=== PATIENT | female | born 1960 | race Caucasian/White ===

== ENCOUNTER 2016-06-15 19:42 | Emergency (ER) | payer OTHER ==
[2016-06-15 20:00] VITALS: BMI 28.7
[2016-06-15 20:03] VITALS: TEMP 97.7
[2016-06-15] MEDS ORDERED: HYDROmorphone 1 MG INJECTION IV ONE ×2 (20:04→20:41)
[2016-06-15] MEDS ORDERED: NS 1,000 ML IV ONE (20:04)
[2016-06-15] MEDS ORDERED: ONDANSETRON HCL 4 MG/2 ML VIAL IV ONE (20:04)
[2016-06-15 20:50] LABS: AUTOMATED BASOPHIL 1.5 % (0-2); AUTOMATED MONOCYTE 5.7 % (3-10); AUTOMATED NEUTROPHIL 64.8 % (45-76); MPV 7.5 fL (7.4-10.4)
--- NOTE | 2016-06-15 21:02 | EDPRACDOC ---
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 PT C/O LEFT ELBOW AND WRIST PAIN. STATES SHE SLIPPED AND STRUCK THE FLOOR WITH HER LEFT SIDE. PT PRESENTS WITH ELBOW EDEMA, BRISK CAP REFILL, 2+ RADIAL PULSE Pain Severity: Reports: Moderate Injuries/Pain Location: Reports: upper extremity Reason for Fall: Reports: slipped Loss of Consciousness: no loss of consciousness Modifying Factors: improves with: immobilization Associated Symptoms (Fall): Reports: denies symptoms Allergies/Adverse Reactions: Allergies No Known Allergies Allergy (Verified 06/15/16 22:13) Home Medications: Ambulatory Orders Albuterol Sulfate MDI [Proventil HFA] 1 - 2 puff INH Q4-6H PRN 04/27/16 Azithromycin 250 mg PO DAILY #6 tablet 04/27/16 Hydrochlorothiazide 12.5 mg PO DAILY 04/27/16 Hydrocodone Bit/Acetaminophen [[place] 5-325 Tablet] 1 tab PO Q4-6H PRN 04/27/16 Lorazepam [Ativan] 0.5 mg PO QHS PRN 04/27/16 Ondansetron HCl [Zofran] 4 mg PO Q6H PRN 04/27/16 Ondansetron [Zofran Odt] 4 mg PO TID PRN #10 tab.rapdis 06/15/16 Oxycodone Immediate Release [Oxycodone Immediate Release (OxyIR)] 5 mg PO Q6H PRN #30 tab 06/15/16 ED Past Medical History - History Reviewed Yes Nurses notes reviewed and agree except as marked - Patient Medical History Cardiac History: Reports: Hypertension Respiratory History: Reports: Asthma, COPD, Emphysema Psychological History: Denies: Depression - Social Medical History Smoking Status: Heavy tobacco smoker (5 or more cigarettes/day or daily pipe/ cigar) EDM Review of Systems - Review of Systems ROS Negative Except as Marked: Yes All systems reviewed and were negative except as marked - Physical Exam Constitutional: Alert (PT APPEARS TO BE UNCOMFORTABLE) Oriented to: Time, Person, Place Last recorded Vital Signs: Last Vital Signs Temp 97.7 F 06/15/16 20:00 Pulse 84 06/15/16 20:00 Resp 20 06/15/16 20:00 BP 145/116 H 06/15/16 20:00 Pulse Ox 96 06/15/16 20:00 Oxygen Pulse Oxygen Saturation 96 O2 Device Room Air Oxygen Flow Rate Fraction of Inspired Oxygen ( FIO2) - HEENT Head: Normal ( normocephalic) Eye Exam: Normal (PERRL, EOMI, Sclera white) Oropharynx: Normal (Pharynx:Moist without exudate,Gums-no swelling) Nose: No Symptoms Reported (septum midline) Neck: Normal (FROM, trachea at midline) - Respiratory/Cardiovascular Respiratory: Normal - CTA (BBS clear to auscultation without adventitious sounds ) Cardiovascular: Normal (RRR without murmur, gallop or rub) - GI Auscultation: Normal (NABS) Palpation: Normal (Soft,No rebound or guarding, non distended) Tenderness: Non tender Mahajan's Sign: Negative Rectal Exam: Deferred - Musculoskeletal Back: Normal (Non-Tender) Extremities: Edema (RIGHT ELBOW), Radial Pulse (2+) - Integumentary Skin: Normal, Warm, Dry Lymphatics: Normal (no adenopathy) - Neurologic Memory Impaired: Normal Motor Function: Normal (Normal tone, Pulses 2+ No cyanosis or edema, FROM) Cranial Nerve: Normal (CN II-X11 intact sensation, strength 5/5) Cerebellar: Normal Mood Description: Normal Perception: Normal ED Injury/Fall Exam - Physical Exam Head Injury: no evidence of injury Extremity Exam: bony-point tenderness, pain with movement, tenderness Skin: Normal, Warm, Dry - Uyen Coma Score Best Eye Response (Uyen): (4) open spontaneously Best Verbal Response (Joppa): (5) oriented Best Motor Response (Uyen): (6) obeys commands [place] Total: 15 ED Procedures - Splinting LEFT ARM Location: LEFT ARM Hand-Made Type: orthoglass Splint: LONG ARM Pre-Proc Neuro Vasc Exam: normal Post-Proc Neuro Vasc Exam: normal, unchanged from pre-exam Other Devices: Sling - Differential Diagnosis Fall, Fracture - Results 06/15/16 20:35 06/15/16 20:35 WBC 10.0 xk/uL (3.8-10.8) 06/15/16 20:35 RBC 4.00 xM/uL (4.20-5.40) L 06/15/16 20:35 Hgb 13.5 g/dL (12.0-16.0) 06/15/16 20:35 Hct 39.4 % (36-47) 06/15/16 20:35 MCV 99 fL (81-99) 06/15/16 20:35 MCH 33.7 pg (27-32) H 06/15/16 20:35 MCHC 34.2 g/dl (33-36) 06/15/16 20:35 RDW 12.7 % (11.5-14.5) 06/15/16 20:35 Plt Count 252 xk/uL (130-400) 06/15/16 20:35 MPV 7.5 fL (7.4-10.4) 06/15/16 20:35 Neut % (Auto) 64.8 % (45-76) 06/15/16 20:35 Lymph % (Auto) 25.0 % (17-44) 06/15/16 20:35 Garden % (Auto) 5.7 % (3-10) 06/15/16 20:35 Eos % (Auto) 3.0 % (0-5) 06/15/16 20:35 Baso % (Auto) 1.5 % (0-2) 06/15/16 20:35 Absolute Neuts (auto) 6.40 xk/uL (1.7-8.2) 06/15/16 20:35 Absolute Lymphs (auto) 2.50 xk/uL (0.65-4.75) 06/15/16 20:35 Lab Results 06/15/16 20:35 WBC 10.0 RBC 4.00 L Hgb 13.5 Hct 39.4 MCV 99 MCH 33.7 H MCHC 34.2 RDW 12.7 Plt Count 252 MPV 7.5 Neut % (Auto) 64.8 Lymph % (Auto) 25.0 Garden % (Auto) 5.7 Eos % (Auto) 3.0 Baso % (Auto) 1.5 Absolute Neuts (auto) 6.40 Absolute Lymphs (auto) 2.50 Decision Time to Discharge: 00:13 - Departure Disposition: Home Condition: Stable Final Diagnosis: Accidental fall Elbow fracture, left Qualifiers: Encounter type: initial encounter Fracture type: closed Qualified Code(s): S42.402A - Unspecified fracture of lower end of left humerus, initial encounter for closed fracture Humeral distal fracture Qualifiers: Encounter type: initial encounter Fracture type: closed Fracture morphology: unspecified fracture morphology Laterality: left Qualified Code(s): S42.402A - Unspecified fracture of lower end of left humerus, initial encounter for closed fracture Instructions: RICE: Routine Care for Injuries, Elbow Fracture in Adults (ED), Arm Fracture in Adults (ED) Education/Counseling Given To: Patient Education/Counseling Given Regarding: Diagnosis, Treatment, Prognosis, Follow Up Referrals: Haseeb Magana MD [Staff Physician] - One Week Prescriptions: Ondansetron [Zofran Odt] 4 mg PO TID PRN #10 tab.rapdis PRN Reason: Nausea/Vomiting Oxycodone Immediate Release [Oxycodone Immediate Release (OxyIR)] 5 mg PO Q6H PRN #30 tab PRN Reason: Pain Forms: Excuse Note Additional Instructions: ICE AND ELEVATION IS VERY IMPORTANT. PLEASE GO TO DR MAGANA'S OFFICE AT 0800 TOMORROW. 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
[2016-06-15 21:18] LABS: BLOOD UREA NITROGEN < 2 MG/DL (7-17); GLUCOSE 118 MG/DL (70-99)
[2016-06-15 21:32] LABS: CALCULATED OSMOLALITY 267 MOs/Kg (270-290); CHLORIDE 104 mEq/L (98-107); SODIUM LEVEL 140 mEq/L (137-146); TOTAL PROTEIN < 2.0 G/DL (6.3-8.2)
[2016-06-15] MEDS ORDERED: PROMETHAZINE 25 MG/ML VIAL IV ONE (21:57)
--- NOTE | 2016-06-15 21:58 | DIRPT ---
CLINICAL DATA: Status post fall in kitchen, with left wrist pain. Initial encounter. EXAM: LEFT WRIST - COMPLETE 3+ VIEW COMPARISON: None. FINDINGS: There is no evidence of fracture or dislocation. The carpal rows are intact, and demonstrate normal alignment. The joint spaces are preserved. Mild dorsal soft tissue swelling is noted. IMPRESSION: No evidence of fracture or dislocation. Electronically Signed By: Chaim Pedroza M.D. On: 06/15/2016 21:56
[2016-06-15] MEDS ORDERED: Pharmacy Review for Metformin - IV Contrast Given SCH (22:00)
--- NOTE | 2016-06-15 22:00 | DIRPT ---
CLINICAL DATA: Diffuse left arm pain after fall in kitchen at work tonight. Pain in the shoulder, elbow, and wrist. EXAM: LEFT FOREARM - 2 VIEW COMPARISON: None. FINDINGS: Comminuted olecranon fracture with osseous distraction of 12 mm and angulation. More posterior fragment is displaced posteriorly. There is adjacent soft tissue edema at the fracture site. More distal ulna and radius are intact. IMPRESSION: Comminuted displaced olecranon fracture. Electronically Signed By: Monika Brower M.D. On: 06/15/2016 21:58
--- NOTE | 2016-06-15 22:01 | DIRPT ---
CLINICAL DATA: PT PRESENTS DUE TO LEFT ARM PAIN THAT OCCURRED AFTER SHE FELL IN KITCHEN AT WORK TONIGHT. PT C/O LEFT SHOULDER, ELBOW, AND WRIST PAIN. STATES SHE SLIPPED AND STRUCK THE FLOOR WITH HER LEFT SIDE EXAM: LEFT ELBOW - COMPLETE 3+ VIEW COMPARISON: None. FINDINGS: There is a fracture of the proximal LEFT ulna through the olecranon fossa. There is comminution the proximal ulna with rotation of the most proximal aspect of the olecranon. No evidence of dislocation. IMPRESSION: Comminuted fracture of the olecranon. Electronically Signed By: Haris Conrad M.D. On: 06/15/2016 21:58
--- NOTE | 2016-06-15 22:03 | DIRPT ---
CLINICAL DATA: Diffuse left arm pain after fall in kitchen at work tonight. Pain in the shoulder, elbow, and wrist. EXAM: LEFT HUMERUS - 2+ VIEW COMPARISON: None. FINDINGS: Comminuted olecranon fracture, better assessed on concurrently performed elbow radiographs. There is an impaction fracture involving the surgical neck of the humerus with displacement, mild comminution and angulation. Glenohumeral alignment is suboptimally assessed. IMPRESSION: 1. Mildly comminuted displaced fracture involving the surgical neck of the humerus. 2. Comminuted olecranon fracture, better assessed on concurrent elbow radiographs. Electronically Signed By: Monika Brower M.D. On: 06/15/2016 22:00
--- NOTE | 2016-06-15 23:37 | DIRPT ---
CLINICAL DATA: Left elbow pain after fall. Further characterization of left elbow fracture. EXAM: CT OF THE UPPER LEFT EXTREMITY WITHOUT CONTRAST TECHNIQUE: Multidetector CT imaging of the left elbow was performed according to the standard protocol. COMPARISON: Radiographs earlier this day. FINDINGS: Comminuted olecranon fracture with displacement of a posterior fragment, distraction of 11 mm. There is comminuted articular surface involvement. The distal humerus remains articulated with the dominant proximal fragment. No additional fracture of the proximal radius or distal humerus. Diffuse soft tissue thickening about the fracture site. There is a small joint effusion. IMPRESSION: Comminuted olecranon fracture with mild angulation and displacement of the proximal most portion of 11 mm. Multifocal comminuted articular surface involvement. Distal humerus remains articulated with the dominant proximal olecranon. Electronically Signed By: Monika Broewr M.D. On: 06/15/2016 23:34
[2016-06-16] MEDS ORDERED: HYDROmorphone 1 MG INJECTION IV ONE
[2016-06-16] MEDS ORDERED: HYDROCODONE 10 MG/ACETAMIN 325 MG TAB PO ONE (00:14)
[2016-06-16] MEDS ORDERED: PROMETHAZINE 25 MG TAB PO ONE (00:18)
[2016-06-16 00:37] VITALS: BP 151/75; PULSE 82
== END 2016-06-16 00:20 | disposition home or self-care (01) ==
LOC: ED 19:42
DX: S52.022A Displaced fracture of olecranon process without intraarticular extension of left ulna, initial encounter for closed fracture (principal); S42.212A Unspecified displaced fracture of surgical neck of left humerus, initial encounter for closed fracture; W01.0XXA Fall on same level from slipping, tripping and stumbling without subsequent striking against object, initial encounter; Y99.0 Civilian activity done for income or pay; I10 Essential (primary) hypertension; J44.9 Chronic obstructive pulmonary disease, unspecified; J45.909 Unspecified asthma, uncomplicated; F17.200 Nicotine dependence, unspecified, uncomplicated; Z79.899 Other long term (current) drug therapy
CPT/HCPCS: 29105; 36415; 73060; 73080; 73090; 73110; 73200; 80053; 85025; 94660; 96361; 96374; 96375; 96376; 99284; J1170; J2405; J2550; J3490

== ENCOUNTER 2016-06-21 20:42 | Emergency (ER) | payer OTHER ==
[2016-06-21 21:19] VITALS: TEMP 97.3; BMI 29.8
--- NOTE | 2016-06-21 21:24 | EDPRACDOC ---
- General Information Chief Complaint: Upper Extremity Injury Stated Complaint: HAND SWELLING Time Seen by Provider: 06/21/16 21:12 Information Source: Patient Mode Of Arrival: Car Home Medications: Home Medications Albuterol Sulfate MDI [Proventil HFA] 1 - 2 puff INH Q4-6H PRN 04/27/16 Hydrochlorothiazide 12.5 mg PO DAILY 04/27/16 Oxycodone Immediate Release [Oxycodone Immediate Release (OxyIR)] 5 mg PO Q6H PRN #30 tab 06/15/16 Aspirin/Acetaminophen/Caffeine [Excedrin Ex-Strength Geltab 250/250/65mg] 1 - 2 tab PO Q4-6H PRN 06/18/16 Diphenhydramine [Benadryl] 25 mg PO Q6H PRN 06/18/16 Oxycodone HCl/Acetaminophen [Percocet 10-325 mg Tablet] 1 each PO Q4 #30 tablet 06/21/16 Allergies/Adverse Reactions: Allergies Allergy/AdvReac Type Severity Reaction Status Date / Time No Known Allergies Allergy Verified 06/15/16 22:13 - History of Present Illness Onset: 4 days HPI: PATIENT HAD A FALL DAYS AGO. FRACTURE OF THE LEFT HUMERAL NE CK AND LEFT ELBOW. BECAUSE OF PAIN PATIENT IS UNABLE TO ELEVATE ARM. SEEING DR. MAGANA TOMORROW. SURGERY IN NEAR FUTURE. SHE PRESENTS BECAUSE HER HAND HAS HAD INCREASED SWELLING AND PAIN HAS INCREASED. SHE DENIES REINJURY. Dominant Side: Reports: Right Mechanism: Reports: FOOSH Circumstances: Reports: Fall Tetanus Up To Date?: Yes Pain Severity: Reports: Moderate Ability to Move Elbow: No Associated Signs and Symptoms: Reports: Swelling ED Past Medical History - History Reviewed Yes Nurses notes reviewed and agree except as marked Travel Outside of [place] in the Last 3 Months?: No - Patient Medical History Cardiac History: Reports: Hypertension Respiratory History: Reports: Asthma, COPD, Emphysema Psychological History: Denies: Depression - Social Medical History Smoking Status: Heavy tobacco smoker (5 or more cigarettes/day or daily pipe/ cigar) ETOH: None Substance Abuse: None Lives With: Family Lives In: Home EDM Review of Systems - Review of Systems ROS Negative Except as Marked: Yes All systems reviewed and were negative except as marked Constitutional: No Symptoms Reported. negative: Fever, Chills, Weakness, Fatigue, Loss of Appetite Eyes: No Symptoms Reported. negative: Redness, Blurred Vision, Double Vision, Discharge, Pain, Light Sensitive, Photophobia Ears: No Symptoms Reported. negative: Pain, Hearing Loss, Drainage, Ear Pulling Throat: No Symptoms Reported. negative: Pain, Swelling Nose: No Symptoms Reported. negative: Congestion, Bleeding, Discharge, Injection, Swelling, Deformity, Ecchymosis, Tender, Abrasion, Laceration Mouth: No Symptoms Reported. negative: Pain, Drooling Respiratory: No Symptoms Reported. negative: Cough, Brassy Cough, Barky Cough, Shortness of Breath, Wheezing, Hemoptysis Cardiovascular: No Symptoms Reported. negative: Chest Pain, Palpitations, Syncope, Edema, Orthopnea, PND, Skin Mottling, Cyanosis Gastrointestinal: No Symptoms Reported. negative: Pain, Constipation, Nausea, Vomiting, Diarrhea, Melena, Formula Intolerance Genitourinary: No Symptoms Reported. negative: Dysuria, Hematuria, Frequency, Discharge, Bleeding, Testicular Pain, Neurological: No Symptoms Reported. negative: Headache, Dizziness, Seizure, Numbness, Weakness, Speech Difficulty, Gait Difficulty Musculoskeletal: Arm (PAIN AND SWELLING), Elbow (PAIN AND SWELLING). negative: Ankle, Back, Chestwall, Forearm, Femur, Foot, Hand, Hip, Knee, Leg, Neck, Pelvis , Ribs, Shoulder, Wrist Integumentary: No Symptoms Reported. negative: Itching, Rash, Bruising, Wound Allergic/Immunologic: No Symptoms Reported. negative: Hives, Itching Hematologic: No Symptoms Reported. negative: Lymphadenopathy, Easy Bruising, Easy Bleeding Endocrine: No Symptoms Reported. negative: Weight Gain, Weight Loss Psychiatric: No Symptoms Reported. negative: Anxiety, Depression, Hallucinations, Insomnia, Suicidal - Physical Exam Constitutional: Alert (Awake), Distress (MILD) Oriented to: Time, Person, Place Last recorded Vital Signs: Last Vital Signs Temp 97.3 F L 06/21/16 21:12 Pulse 83 06/21/16 21:12 Resp 20 06/21/16 21:12 BP 182/88 H 06/21/16 21:12 Pulse Ox 96 06/21/16 21:12 Oxygen Pulse Oxygen Saturation 96 O2 Device Room Air Oxygen Flow Rate Fraction of Inspired Oxygen ( FIO2) - HEENT Head: Normal ( normocephalic) Eye Exam: Normal (PERRL, EOMI, Sclera white) Oropharynx: Normal (Pharynx:Moist without exudate,Gums-no swelling) Tympanic Membrane: Normal ENT EAC: Normal TMJ: Normal Nose: No Symptoms Reported (septum midline) Neck: Normal (FROM, trachea at midline) - Respiratory/Cardiovascular Respiratory: Normal - CTA (BBS clear to auscultation without adventitious sounds ) Cardiovascular: Normal (RRR without murmur, gallop or rub) - GI Auscultation: Normal (NABS) Palpation: Normal (Soft,No rebound or guarding, non distended) Tenderness: Non tender Mahajan's Sign: Negative - Musculoskeletal Back: Normal (Non-Tender) Extremities: Normal (Normal tone, Pulses 2+ No cyanosis or edema, FROM) - Integumentary Skin: Warm, Dry, Other (BRUISING AND SWELLING AT THE PROXIMAL HUMERUS. SWELLING AT THE LEFT ELBOW WITH INABILITY TO ROM. POSTERIOR MOLD IN PLACE. WAI BANDAGES NOT TOO TIGHT. EDEMA OF LEFT HAND DUE TO LACK OF ELEVATION) Lymphatics: Normal (no adenopathy) - Neurologic Memory Impaired: Normal Motor Function: Normal (Normal tone, Pulses 2+ No cyanosis or edema, FROM) Cranial Nerve: Normal (CN II-X11 intact sensation, strength 5/5) Cerebellar: Normal Mood Description: Normal Perception: Normal Decision Time to Discharge: 21:26 - Departure Yes I personally saw and evaluated the patient. Disposition: Home Condition: Good Final Diagnosis: Peripheral edema Left humeral fracture Qualifiers: Encounter type: subsequent encounter Humerus Location: surgical neck Fracture type: closed Fracture morphology: 4-part Fracture healing: with routine healing Qualified Code(s): S42.242D - 4-part fracture of surgical neck of left humerus, subsequent encounter for fracture with routine healing Left elbow fracture Qualifiers: Encounter type: subsequent encounter Fracture healing: with routine healing Qualified Code(s): S42.402D - Unspecified fracture of lower end of left humerus , subsequent encounter for fracture with routine healing Instructions: RICE: Routine Care for Injuries Education/Counseling Given To: Patient Education/Counseling Given Regarding: Diagnosis, Treatment, Prognosis, Follow Up Referrals: None,No Provider [Primary Care Provider] - One Week Haseeb Magana MD [Staff Physician] - One Week Prescriptions: Oxycodone HCl/Acetaminophen [Percocet 10-325 mg Tablet] 1 each PO Q4 #30 tablet Additional Instructions: KEEP ARM ELEVATED ABOVE HEART
[2016-06-21 21:39] VITALS: BP 179/91; PULSE 81
== END 2016-06-21 21:38 | disposition home or self-care (01) ==
LOC: ED 20:42
DX: S42.242D 4-part fracture of surgical neck of left humerus, subsequent encounter for fracture with routine healing (principal); X58.XXXD Exposure to other specified factors, subsequent encounter; R60.0 Localized edema
CPT/HCPCS: 99283

== ENCOUNTER 2016-06-23 10:39 | Observation (INO) | payer OTHER ==
[~2016-06-23 10:39] MED LIST: DEXAMETHASONE 4 MG/ML VIAL IV ONE; EPHEDrine 50 MG/ML VIAL IM ONE; FENTANYL 100 MCG/2 ML VIAL IV ONE; GLYCOPYRROLATE 1 MG VIAL IM ONE; HYDROmorphone 2 MG/ML VIAL IM ONE; LABETALOL 5 MG/ML MDV IV ONE; LIDOCAINE 4% 5 ML AMPULE NEB ONE; MIDAZOLAM 2 MG/2 ML VIAL IV ONE; NEOSTIGMINE 1 MG/1 ML (1:1000) INJ 10 ML MDV IM ONE; ONDANSETRON HCL 4 MG/2 ML VIAL IV ONE; PROPOFOL 200 MG/20 ML VIAL IV ONE; ROCURONIUM 50 MG/5 ML VIAL IV ONE; SUCCINYLCHOLINE 20 MG/1 ML INJ 10 ML MDV IV ONE
[2016-06-23] MEDS ORDERED: CEFAZOLIN 1 GM VIAL ONE (10:52)
[2016-06-23] MEDS ORDERED: ONDANSETRON HCL 4 MG/2 ML VIAL IV PRN ×2 (11:57→18:07)
[2016-06-23] MEDS ORDERED: LABETALOL 20 MG/4 ML SYRINGE IV PRN (11:57)
[2016-06-23] MEDS ORDERED: ONDANSETRON HCL 4 MG ODT TAB PO PRN (11:57)
[2016-06-23] MEDS ORDERED: MEPERIDINE 25 MG/ML TUBEX IV PRN (11:57)
[2016-06-23] MEDS ORDERED: hydrALAZINE 20 MG/ML VIAL IV PRN (11:57)
[2016-06-23] MEDS ORDERED: FENTANYL 100 MCG/2 ML VIAL IV PRN ×2 (11:57)
[2016-06-23] MEDS ORDERED: HYDROmorphone 1 MG INJECTION IV PRN ×2 (11:57)
[2016-06-23] MEDS ORDERED: SCOPOLAMINE TRANSDERMAL PATCH TOP PRN (11:58)
[2016-06-23] MEDS ORDERED: ONDANSETRON HCL 4 MG/2 ML VIAL IV SCH ×2 (12:00→13:00)
[2016-06-23] MEDS ORDERED: ONDANSETRON HCL 4 MG/2 ML VIAL ONE (12:01)
[2016-06-23] MEDS ORDERED: SCOPOLAMINE TRANSDERMAL PATCH TOP ONE (12:01)
[2016-06-23] MEDS ORDERED: LIDOCAINE 1% 30 ML VIAL (PRESERVATIVE FREE) ONE (12:26)
[2016-06-23] MEDS ORDERED: BUPIVACAINE 0.5% 30 ML VIAL ONE (12:26)
--- NOTE | 2016-06-23 14:04 | HIM.ANES ---
Anesthesia Evaluation & Plan Diagnoses: UNSP DISP FX OF SURGICAL NECK OF LEFT HUMERUS, INIT (06/23/16) DISP FX OF OLECRAN PRO W/O INTARTIC EXTN LEFT ULNA, INIT (06/23/16) Consented Procedure: open reduction internal fixation left humerus fracture and open reduction internal fixation left olecranon fracture and other procedures as indicated - Focused Review of Systems Cardiac History: Yes: Hx Hypertension, Hx Cardiac Disorders HEENT: No: Other HEENT Problems Hx Other HEENT Problems: SEASONAL ALLERGIES, RHINNITIS Respiratory: Yes: Hx Asthma, Hx Emphysema, Hx Chronic Obstructive Pulmonary Disease (COPD) Gastrointestinal: No: Hx Gastrointestinal Disorders Neurological/Musculoskeletal: No: Hx Neurological Disorders Psychological: Yes Hx Anxiety, No Hx Depression, Yes Hx Mental/Emotional Disorders HX Other Psyco/Soc Problems: anxiety Blood/Autoimmune: No: Hx AIDS, Hx Hepatitis (type) Smoking Status: Heavy tobacco smoker (5 or more cigarettes/day or daily pipe/ cigar) Other Surgical History: TUBAL LIGATION, DELIVERY BTL - Focused Physical Exam NPO since: 06/23/16 0230 Mallampati: Class II Thyromental Distance: Greater than 3 Neck: Full Range of Motion Dental: Normal - no significant findings Cardiovascular/Chest: Normal Respiratory: Lungs clear Any problems with anesthesia, including nausea and vomiting?: No Any relatives with a history of Malignant Hyperthermia?: No Does patient have a history of Malignant Hyperthermia?: No Beta Caridad given (if appropriate): N/A Does the patient have a history of Motion Sickness-: No Other: Problem List Problem Status Onset Accidental fall Acute Elbow fracture, left Acute Humeral distal fracture Acute Left carpal tunnel syndrome Acute Left elbow fracture Acute Left humeral fracture Acute Peripheral edema Acute Right carpal tunnel syndrome Chronic Trigger finger Chronic Trigger finger of left hand Chronic Allergies Allergy/AdvReac Type Severity Reaction Status Date / Time No Known Allergies Allergy Verified 06/23/16 11:07 Home Medications Medication Instructions Recorded Last Taken Type Albuterol Sulfate MDI [Proventil 1 - 2 puff INH Q4-6H PRN 04/27/16 06/22/16 History HFA] Hydrochlorothiazide 12.5 mg PO DAILY 04/27/16 06/22/16 History Oxycodone Immediate Release 5 mg PO Q6H PRN #30 tab 06/15/16 06/22/16 Rx [Oxycodone Immediate Release (OxyIR)] Aspirin/Acetaminophen/Caffeine 1 - 2 tab PO Q4-6H PRN 06/18/16 06/22/16 History [Excedrin Ex-Strength Geltab 250/250/65mg] Diphenhydramine [Benadryl] 25 mg PO Q6H PRN 06/18/16 06/22/16 History Oxycodone HCl/Acetaminophen 1 each PO Q4 #30 tablet 06/21/16 06/23/16 00:00 Rx [Percocet 10-325 mg Tablet] Ondansetron HCl [Zofran] 4 mg PO Q8H PRN 06/23/16 06/22/16 History Height and Weight Patient's height 5 ft 1 in Patient's weight 71.668 kg BMI 29.8 Vital Signs Temperature 97.8 F 06/23/16 10:50 Pulse Rate 90 06/23/16 10:50 Respiratory Rate 16 06/23/16 10:50 Blood Pressure 150/89 06/23/16 10:50 Pulse Oxygen Saturation 96 06/23/16 10:50 METS - Level of Activity: Climbing stairs(1 flight),walking level ground, running short distance - Anesthetic Plan Anesthesia Type: General, Post-Op Block- for Pain Control ASA Class: 2 -: I have examined this patient and reviewed the medical record. The patient has been assessed prior to anesthesia. Risks and benefits of anesthesia and anesthetic technique options have been discussed and all questions answered. The patient accepts the risk and desires me to proceed with the planned anesthetic.
[2016-06-23] MEDS: VANCOMYCIN 1,000 MG VIAL INSTILL ONE ×2 (15:03→20:11)
[2016-06-23] MEDS: FENTANYL 100 MCG/2 ML VIAL ONE ×2 (16:00→16:10)
[2016-06-23] MEDS ORDERED: HYDROmorphone 1 MG INJECTION ONE (16:17)
[2016-06-23] MEDS ORDERED: MIDAZOLAM 2 MG/2 ML VIAL ONE (16:40)
[2016-06-23] MEDS ORDERED: BUPIVACAINE 0.25% 30 ML VIAL ONE (16:48)
[2016-06-23] MEDS ORDERED: LIDOCAINE 1% 5 ML (METHYLPARABEN FREE) ONE (16:48)
--- NOTE | 2016-06-23 17:40 | HIM.ANESP ---
Procedure Note DATE OF PROCEDURE: 06/23/16 PREOPERATIVE DIAGNOSIS: Post-operative Pain Control. POSTOPERATIVE DIAGNOSIS: Same PROCEDURE: Brachial Plexus Block at interscalene PERFORMING PROVIDER: Aurea Cannon MD TIME OUT: 165 BLOCK START Time: 1700 BLOCK STOP Time: 1715 MEDICATIONS: Bupivacaine 0.25% 30 ml EPINEPHRINE 1:200,000 NEEDLE: sunne.ws ultra 360 22G 50MM STERILE BARRIERS: Cap, mask, sterile gloves. COMPLICATIONS: None. BLOOD LOSS: 0 cubic centimeters. PROCEDURE FINDINGS AND TECHNIQUE:At the request of the Operative Surgeon and patient, a Brachial Plexus Block was performed for post-operative pain relief. Risk, benefits and alternatives of the procedure were explained. Informed consent was obtained and surgical site confirmed with patient and chart. Time out was performed. Pulse oximetry, EKG and BP monitoring were established.. The left neck was prepped and draped in a sterile manner. Skin anesthesia was obtained with 1% Xylocaine infiltration. The Brachial plexus was visualized by ultrasound and an image is appended. (see chart) A Stimuplex needle was inserted in the proximity of the nerves. Under direct visualization local anesthetic was injected in incremental volumes of 5 ml with negative aspirations throughout. There was no pain on injection. A peripheral nerve stimulator was used to assist in localizing the brachial plexus. Appropriate paresthesia and/or muscle response was noted at 0.5mA current. No muscle response noted at 2mA or less. Block was placed in the PACU after surgery
--- NOTE | 2016-06-23 17:55 | SC.ANESPOS ---
Post-Anesthesia Note LOC: Fully Awake (post op pain block done in PACU post op. Pt tolerated procedure well, pain better post blockc) Post-Anesthesia Assessment: Awake, Returned to Baseline, Hemodynamically Stable , Pain Control Adequate Phase I & II Recovery Complete: Yes Apparent Anesthesia Complication: No : N - Vital Signs Blood Pressure: 133/85 Pulse: 108 Resp Rate: 22 O2 Sat: 93 Temp: 97.2 F
[2016-06-23] MEDS ORDERED: OXYCODONE HCL 5 MG TABLET PO PRN (18:07)
[2016-06-23] MEDS ORDERED: PROMETHAZINE 25 MG/ML VIAL IV PRN (18:07)
[2016-06-23] MEDS ORDERED: Aluminum;Magnesium;Simethicone 30 ML UDC PO PRN (18:07)
[2016-06-23] MEDS ORDERED: ACETAMINOPHEN 325 MG/TAB TABLET PO PRN (18:07)
[2016-06-23] MEDS ORDERED: MAGNESIUM HYDROXIDE 30 ML BOTTLE PO PRN (18:07)
[2016-06-23] MEDS ORDERED: NALOXONE 0.4 MG/ML AMPULE IV SCH (19:00)
--- NOTE | 2016-06-23 19:09 | HIMCONSMED ---
Consultation Date: 06/23/16 Requesting Physician: Kash Kennedy Consulting Doctor: Ramesh Chacon Consult Reason: Medical Management PRIMARY CARE PROVIDER: Rachael Lu HPI: The patient is a 56 yo woman who had a left humerus fracture several days ago and was brought to the operating room for same day surgery today. Post- operatively, she had some low oxygen saturations, so she was admitted overnight. The patient insists that there is nothing wrong, that she is not having any COPD symptoms, is not short of breath. She refuses any treatment for COPD. Regarding the left arm pain and fracture: Onset: several days ago. Duration: intermittent. Location: left upper arm. Radiation: rest of arm. Character: severe at times. sharp. Alleviated by: Nothing. Exacerbated by: Nothing. Associated Symptoms: weakness. Treatments: none at home except usual medications. Chief Complaint: pain - Past Medical and Surgical History Cardiac History: Reports: Hypertension Respiratory History: Reports: Asthma, COPD, Emphysema Psychological History: Reports: Anxiety. Denies: Depression Allergies No Known Allergies Allergy (Verified 06/23/16 11:07) Home Medications Albuterol Sulfate MDI [Proventil HFA] 1 - 2 puff INH Q4-6H PRN 04/27/16 Hydrochlorothiazide 12.5 mg PO DAILY 04/27/16 Oxycodone Immediate Release [Oxycodone Immediate Release (OxyIR)] 5 mg PO Q6H PRN #30 tab 06/15/16 Aspirin/Acetaminophen/Caffeine [Excedrin Ex-Strength Geltab 250/250/65mg] 1 - 2 tab PO Q4-6H PRN 06/18/16 Diphenhydramine [Benadryl] 25 mg PO Q6H PRN 06/18/16 Oxycodone HCl/Acetaminophen [Percocet 10-325 mg Tablet] 1 each PO Q4 #30 tablet 06/21/16 Ondansetron HCl [Zofran] 4 mg PO Q8H PRN 06/23/16 Oxycodone Immediate Release [Oxycodone Immediate Release (OxyIR)] 5 mg PO Q4H PRN #40 tab 06/23/16 - Social History Travel Outside of [place] in the Last 3 Months?: No Smoking Status: Heavy tobacco smoker (5 or more cigarettes/day or daily pipe/ cigar) Social History: Denies: Alcohol Use, Substance Use Disorder - Family History Reports: Hypertension (MOTHER), Diabetes (MOTHER, MATERNAL GM), Cancer (MOTHER LYMPHOMA, FATHER LUNG CA), Cardiac Disorders (GF). Denies: Stroke - Review of Systems GENERAL: No Fever, chills, or diaphoresis. Positive for fatigue/malaise. HEENT: No ear pain or discharge. No nasal discharge or bleeding. No throat pain or swelling. No eye pain or eye redness. RESPIRATORY: No cough, wheezing, or shortness of breath. CARDIOVASCULAR: No chest pain or palpitations. GI: No abdominal pain, nausea, vomiting, diarrhea, constipation, or bloody stool. NEUROLOGICAL: No headache or focal weakness. INTEGUMENT: no rashes, itching, or lesions. LYMPHATIC SYSTEM: no lymph node swelling or pain. MUSCULOSKELETAL: Except for arm pain and other pain she has had, no new pain or joint swelling today. GENITOURINARY: No dysuria or hematuria. ENDOCRINE: No polyuria or polydipsia. HEME: No chronic anemia, bleeding, or easy bruising. - Physical Exam Vital Signs: Initial Vitals Temperature 97.8 F 06/23/16 10:50 Pulse Rate 90 06/23/16 10:50 Respiratory Rate 16 06/23/16 10:50 Blood Pressure 150/89 06/23/16 10:50 Pulse Oxygen Saturation 96 06/23/16 10:50 Vital Signs - 24 hr 06/23/16 06/23/16 06/23/16 10:50 15:41 15:46 Temperature 97.8 F 97.2 F L Pulse Rate 90 85 86 Respiratory 16 16 16 Rate Blood Pressure 150/89 165/67 146/65 Pulse Oxygen 96 98 96 Saturation 06/23/16 06/23/16 06/23/16 15:51 16:05 16:31 Temperature Pulse Rate 88 95 91 Respiratory 16 16 16 Rate Blood Pressure 147/76 145/86 152/84 Pulse Oxygen 99 92 93 Saturation 06/23/16 06/23/16 06/23/16 16:59 17:00 17:15 Temperature Pulse Rate 83 91 104 Respiratory 22 16 16 Rate Blood Pressure 136/89 133/85 136/89 Pulse Oxygen 98 91 93 Saturation 06/23/16 06/23/16 06/23/16 17:37 17:48 17:55 Temperature 98.4 F 97.2 F L Pulse Rate 108 107 108 Respiratory 16 16 22 Rate Blood Pressure 151/65 149/70 133/85 Pulse Oxygen 94 92 93 Saturation 06/23/16 18:15 Temperature 98.6 F Pulse Rate 102 Respiratory 16 Rate Blood Pressure 146/70 Pulse Oxygen 95 Saturation Weight: 71.7 kg Height: 5 feet 1 inch BMI: 30 - Other Exam Other Exam Findings: GENERAL: Ill-appearing, well nourished, in acute distress. HEENT: Normocephalic, atraumatic; pupils equal and round. Nares patent, without discharge or bleeding. No oropharyngeal lesions or erythema. Mucous membranes are dry. NECK: is supple, no masses, trachea midline. RESPIRATORY: Clear to auscultation bilaterally. Chest wall movements are symmetric. No use of accessory muscles to breathe. No rales, rhonchi. Bilateral wheezing, minimal. CARDIOVASCULAR: Normal S1, S2. No murmurs, rubs, or gallops. PMI non-displaced. Carotids: no carotid bruits. No bradycardia or tachycardia. DP pulses 2+ bilaterally. GI: soft, nontender, non-distended, normal active bowel sounds. No hepatosplenomegaly. INTEGUMENT: Clean, dry, and intact. No rashes. No lesions. MUSCULOSKELETAL: Moving all extremities, except left arm. No cyanosis. No clubbing. Edema: none bilaterally. NEUROLOGICAL: Cranial nerves 2-12 grossly intact. Reflexes: 2+ bilaterally. Sensory grossly intact to light touch. PSYCHIATRIC: Fully oriented. Anxious affect. LYMPHATIC: No cervical lymphadenopathy. No supraclavicular lymphadenopathy. - Assessment (1) Hypoxia R09.02 - HYPOXEMIA Acute Present on Admission: Yes Patient denies that she has any shortness of breath. She states she does not want any treatment. Plan: She has agreed to nasal cannula p.r.n.. (2) Chronic obstructive pulmonary disease J44.9 - CHRONIC OBSTRUCTIVE PULMONARY DISEASE, UNSPECIFIED Acute Present on Admission: Yes Qualifiers: COPD type: C Chronic bronchitis type: C Emphysema type: E Patient states that she has mild COPD and that she rarely uses inhalers or nebulizers. She uses them only when she has an acute infection/bronchitis. She states the medications make her more anxious and cause tachycardia and shaking. Plan: The patient refuses any neb treatments or other treatments for COPD. If she changes her mind, would recommend DuoNeb Q 8 hours p.r.n. for wheezing or shortness of breath. (3) Left humeral fracture S42.302A - UNSP FRACTURE OF SHAFT OF HUMERUS, LEFT ARM, INIT Acute Present on Admission: Yes Qualifiers: Encounter type: subsequent encounter Humerus Location: surgical neck Fracture type: closed Fracture morphology: 4-part Fracture alignment: F Sal[place] Fracture Type: S Fracture healing: with routine healing Qualified Code(s): S42.242D - 4-part fracture of surgical neck of left humerus, subsequent encounter for fracture with routine healing She is status post surgery 06/23/16 for her left humeral fracture. Plan: Management per Dr. Keith. (4) Anxiety F41.9 - ANXIETY DISORDER, UNSPECIFIED Acute Present on Admission: Yes PRN meds if needed. - Plan (1) Hypoxia R09.02 - HYPOXEMIA Acute Present on Admission: Yes Patient denies that she has any shortness of breath. She states she does not want any treatment. Plan: She has agreed to nasal cannula p.r.n.. (2) Chronic obstructive pulmonary disease J44.9 - CHRONIC OBSTRUCTIVE PULMONARY DISEASE, UNSPECIFIED Acute Present on Admission: Yes Patient states that she has mild COPD and that she rarely uses inhalers or nebulizers. She uses them only when she has an acute infection/bronchitis. She states the medications make her more anxious and cause tachycardia and shaking. Plan: The patient refuses any neb treatments or other treatments for COPD. If she changes her mind, would recommend DuoNeb Q 8 hours p.r.n. for wheezing or shortness of breath. (3) Left humeral fracture S42.302A - UNSP FRACTURE OF SHAFT OF HUMERUS, LEFT ARM, INIT Acute Present on Admission: Yes Qualifiers: Encounter type: subsequent encounter Humerus Location: surgical neck Fracture type: closed Fracture morphology: 4-part Fracture healing: with routine healing Qualified Code(s): S42.242D - 4-part fracture of surgical neck of left humerus, subsequent encounter for fracture with routine healing She is status post surgery 06/23/16 for her left humeral fracture. Plan: Management per Dr. Keith. (4) Anxiety F41.9 - ANXIETY DISORDER, UNSPECIFIED Acute Present on Admission: Yes PRN meds if needed. Case Care Discussed with: Patient
[2016-06-23] MEDS: HYDROmorphone 1 MG INJECTION IV PRN ×2 (19:33→23:16)
[2016-06-23] MEDS: LR 1,000 ML IV SCH (19:35)
[2016-06-23] MEDS: Cefazolin 1gm/50 ml D5W 1 GM/50 ML RTU IV SCH (19:36)
[2016-06-23] MEDS ORDERED: CEFAZOLIN 1 GM in D5W 100 ML IV SCH (20:00)
[2016-06-23] MEDS ORDERED: Docusate Sodium 100 MG CAP PO SCH (21:00)
[2016-06-23] MEDS ORDERED: Vaccine Screening Complete SCH (23:00)
[2016-06-24] MEDS: OXYCODONE HCL 5 MG TABLET PO PRN ×4 (00:24→13:26)
[2016-06-24] MEDS: LR 1,000 ML IV SCH (02:26)
[2016-06-24] MEDS: HYDROmorphone 1 MG INJECTION IV PRN ×4 (02:26→10:19)
[2016-06-24] MEDS: LORAZEPAM 1 MG TAB PO PRN ×2 (04:20→10:20)
[2016-06-24] MEDS: Cefazolin 1gm/50 ml D5W 1 GM/50 ML RTU IV SCH ×2 (04:30→12:05)
[2016-06-24] MEDS ORDERED: SODIUM CHLORIDE 0.9% 3 ML FLUSH FLUSH SCH (06:00)
[2016-06-24] MEDS ORDERED: FLU VACCINE (Afluria) 0.5 ML DOSE IM ONE (08:00)
[2016-06-24] MEDS ORDERED: PNEUMOCOCCAL 0.5 ML VIAL IM ONE (08:00)
--- NOTE | 2016-06-24 11:24 | PCM.ORTHBL ---
- Subjective Post Op Day: 1 Daily Assessment - Patient: Reports: No new complaints, Awake Alert Oriented x4 , Still having pain, Tolerating Regular Diet, Voiding without difficulty, Afebrile, Other (denies chest pain). Denies: Shortness of breath, Nausea, Vomiting - Objective / Physical Exam Vital Signs: Temperature: 99.3 F (06/24/16 10:44) HR: 95 (06/24/16 10:44)RR: 18 (06/24/16 10: 44) BP: 170/90 (06/24/16 10:44)Pulse Ox: 95 (06/24/16 10:44) General: Alert, Oriented x3, Cooperative, No acute distress, Well appearing Musculoskeletal / Extremities: 2 plus Radial Pulse, Dressing Clean/Dry/Intact, Other (hand is swollen, LUE. Able to move all fingers) Neurological: Sensation to light touch intact - Assessment and Plan (1) Elbow fracture, left Acute S42.402A - UNSP FRACTURE OF LOWER END OF LEFT HUMERUS, INIT FOR CLOS FX initial encounter closed S42.402A - Unspecified fracture of lower end of left humerus, initial encounter for closed fracture (2) Left humeral fracture Acute S42.302A - UNSP FRACTURE OF SHAFT OF HUMERUS, LEFT ARM, INIT Present on Admission: Yes subsequent encounter surgical neck closed 4-part with routine healing S42.242D - 4-part fracture of surgical neck of left humerus, subsequent encounter for fracture with routine healing Plan: POD#1 s/p ORIF left humerus and olecranon Continue pain management Patient was placed into a splint today for comfort. To continue sling Continue ice to LUE Consider discharge later today
--- NOTE | 2016-06-24 11:59 | HIMOP ---
DATE OF PROCEDURE: 06/23/2016 PREOPERATIVE DIAGNOSES: 1. Left proximal humerus 2 part surgical neck fracture displaced. 2. Left proximal ulna comminuted olecranon fracture, intra-articular. POSTOPERATIVE DIAGNOSES: 1. Left proximal humerus 2 part surgical neck fracture displaced. 2. Left proximal ulna comminuted olecranon fracture, intra-articular. PROCEDURE PERFORMED: 1. Open reduction and internal fixation, left proximal humerus with a locking plate. 2. Open reduction and internal fixation, left olecranon fracture using locking plate. SUPERVISOR CONTINGENTS: Dr. Alex Greco. Based on the complexity of the case, a board-certified surgeon was needed for the open reduction and internal fixation of the left proximal humerus fracture. OTHER SUPERVISOR CONTINGENTS: Jacob Betancourt. IMPLANTS: 1. Periarticular [place] titanium locking plate 4 holes for left proximal humerus. 2. Periarticular locking plate for fixation of the proximal ulna 4 hole. BRIEF HISTORY: Caron Mendoza is a [id number], who fell at work almost a week ago. She sustained a comminuted fracture of left proximal humerus and left proximal ulna. She had a CT scan, which showed intra-articular nature of both the fractures. Based on the nature and the ipsilateral extremity involvement, open reduction and internal fixation was recommended. The patient understood that the risks involved in surgery include infection, damage to the nerve, blood vessel, implant related complication, need for further surgery, continued pain, DVT, pulmonary embolism, stroke, and even . She volunteered an informed consent. The patient was seen on the day of surgery in the preop holding area. Surgical site was marked. The patient was then wheeled back into the operating room. DESCRIPTION OF THE PROCEDURE: The patient was placed supine on the beach chair. Proper timeout was performed. A 2 g of IV Ancef was given. Left upper extremity was prepped from the side of the neck all the way down to the wrist. Left upper extremity was then prepped and draped. We started with the tourniquet above the elbow with the fixation of the proximal ulna fracture. A posterior approach was used. Skin and deep fascia was incised. The olecranon was a comminuted fracture with more than 4 fragments. The fracture hematoma was evacuated and the fracture fragments were reduced to the distal and the proximal fragment. K-wires were used for fracture reduction. This was confirmed under AP and lateral C-arm images. We then proceeded with application of a 4 hole periarticular locking plate. The total of 4 screws were placed through the proximal fragment and 3 screws were placed through the distal fragment of the ulna. Interfragmentary compression using 2.7 screws was achieved for smaller fragment. This was followed by irrigation and wound closure in layers. We then proceeded with open reduction of the proximal humerus. The deltopectoral approach was used. The cephalic vein was retracted laterally. The interval was developed and the self retaining retractors were placed. Proximal humerus was a comminuted fracture involving with surgical neck as well as extending into the tuberosities. We placed holding stitches into the rotator cuff in the supraspinatus as well as the subscapularis to get control of the humeral head. This was followed by reduction of the varus deformity of the humeral head. The reduction was confirmed under AP and lateral C-arm images. We then placed a 4 hole periarticular locking plate, which was initially fixed to the humeral head and the shaft using K-wires. The reduction was again confirmed. The plate was then attached to the proximal humerus and the shaft using nonlocking and locking screws. The position of the screws were checked under fluoroscopy. The biceps tenotomy and tenodesis was performed. The wound was closed in layers. The patient tolerated the procedure very well and was taken to the recovery room in a stable condition. The patient was placed in sling. DISPOSITION: The patient would be admitted overnight for pain control. She will have a postoperative axillary nerve block done. The patient would be discharged home in the morning. [id number]
--- NOTE | 2016-06-24 12:23 | HIMOP ---
DATE OF PROCEDURE: 06/23/2016 PREOPERATIVE DIAGNOSES: 1. Left proximal humerus 2 part surgical neck fracture with displacement. 2. Left proximal ulna comminuted olecranon fracture. POSTOPERATIVE DIAGNOSES: 1. Left proximal humerus 2 part surgical neck fracture with displacement. 2. Left proximal ulna comminuted olecranon fracture. PROCEDURE PERFORMED: 1. Open reduction and internal fixation of left proximal humerus with a locking plate. 2. Open reduction and internal fixation of left olecranon fracture with a locking plate. SURGEON: Haseeb Keith MD [employer]PPLY CRIB ATTENDANT: Alex Greco. ANESTHESIA: General endotracheal anesthesia. IV FLUIDS: Crystalloids. ESTIMATED BLOOD LOSS: 200 mL. SPECIMENS: None. COMPLICATIONS: None. Please mention, if the corporate legal assistant surgeon is based on the complexity of the proximal humerus fracture, board-certified corporate legal assistant surgeon was required during the case for fixation of the proximal humerus. IMPLANTS: 1. 5 hole periarticular locking plate for fixation of the olecranon fracture. 2. 4 hole proximal humerus periarticular locking plate for fixation of the proximal humerus. BRIEF HISTORY: Caron Mendoza is a [id number], who fell while at work. She sustained a left proximal humerus and left olecranon fracture. She was seen in the ER at [facility] and was referred to the clinic. Based on the nature and the ipsilateral involvement of the upper extremity as well as the intra-articular nature of both the fractures, open reduction and internal fixation was recommended. The patient understood that the risks involved in surgery include infection, damage to the nerve, blood vessel, stiffness, implant related complication, continued pain, DVT, pulmonary embolism, stroke, and even . She volunteered an informed consent. The patient was seen on the day of surgery in the preop holding area. Surgical site was marked. The patient was then wheeled back into the operating room. DESCRIPTION OF THE PROCEDURE: The patient was placed on the beach chair. General endotracheal anesthesia was administered. Proper timeout was performed. A 2 g of IV Ancef was given. Left upper extremity was prepped and draped from the side of the neck up to the wrist. We started the fixation with open reduction and internal fixation of the left olecranon fracture. Under tourniquet, a posterior incision was made. Skin and deep fascia was incised. The fracture site was exposed. Olecranon was a comminuted fracture with more than 6 fragments. The large olecranon fragments were pulled, placed together, and held with 0.62 K-wires. We then confirmed the reduction under AP and lateral C-arm images. We then procured a 5 hole periarticular locking plate and this was fixed initially to the distal fragment using a nonlocking screw. The reduction was again confirmed under AP and lateral C-arm images. This was followed by application of both locking and nonlocking screws through the proximal and distal fragment. Final AP and lateral x-rays were obtained. Elbow range of motion was unimpeded off of fixation of the olecranon fracture. We then proceeded with open reduction and internal fixation of the left proximal humerus fracture. Deltopectoral approach was used. Skin and deep fascia was incised. Cephalic vein was retracted laterally. The interval between the deltoid and the pectoralis major was developed. Upper end of the pectoralis major was released from the proximal humerus partially. The subacromial space was cleared. We used the biceps tendon as the local landmark and performed a biceps tenotomy followed by tenodesis. The fracture site was identified. There was varus deformity at the surgical neck. Open reduction was achieved with manipulation at the fracture site as well as controlling the tuberosities through sutures in the rotator cuff, in the supraspinatus, and subscapularis. Reduction was initially maintained with K-wires. We then proceeded with the application of a 4 hole periarticular proximal humerus locking plate. This was initially fixed to the shaft with a nonlocking screw followed by locking and nonlocking screws through the remaining portion of the plate. Position of the screws was checked under AP and lateral C-arm images. Final x-rays were obtained. The wound was copiously irrigated with normal saline and was closed in layers. A sling was applied postoperatively. The patient tolerated the procedure very well and was taken to the recovery room in a stable condition. DISPOSITION: The patient would be discharged home today. She would have a postoperative axillary nerve block and will be seen back in the clinic in 2 weeks. [id number]
--- NOTE | 2016-06-24 13:59 | PCM.DCS92 ---
- Final/Secondary Discharge Diagnosis (1) Elbow fracture, left Acute S42.402A - UNSP FRACTURE OF LOWER END OF LEFT HUMERUS, INIT FOR CLOS FX initial encounter closed S42.402A - Unspecified fracture of lower end of left humerus, initial encounter for closed fracture (2) Left humeral fracture Acute S42.302A - UNSP FRACTURE OF SHAFT OF HUMERUS, LEFT ARM, INIT Present on Admission: Yes subsequent encounter surgical neck closed 4-part with routine healing S42.242D - 4-part fracture of surgical neck of left humerus, subsequent encounter for fracture with routine healing Plan/Goal/Comment: Continue pain management. Patient to remain NWB with LUE. To remain in sling, do not remove. Discharge to home. To follow-up in office in 1 week or earlier as needed. Discharge Disposition: Home Discharge Condition: Stable Cognitive Discharge Status: Unimpaired Fuctional Discharge Status: Post-op Weakness Physician Follow up/Referrals: Haseeb Keith MD [Staff Physician] - 07/06/16 11:15 am New Prescriptions: Oxycodone Immediate Release [Oxycodone Immediate Release (OxyIR)] 5 - 10 mg PO Q4H PRN #60 tab PRN Reason: Pain Discharge Home Medication List Albuterol Sulfate MDI [Proventil HFA] 1 - 2 puff INH Q4-6H PRN 04/27/16 [ History Confirmed 06/23/16 Last Taken 06/22/16] Hydrochlorothiazide 12.5 mg PO DAILY 04/27/16 [History Confirmed 06/23/16 Last Taken 06/22/16] Oxycodone Immediate Release [Oxycodone Immediate Release (OxyIR)] 5 mg PO Q6H PRN #30 tab 06/15/16 [Rx Confirmed 06/23/16 Last Taken 06/22/16] Diphenhydramine [Benadryl] 25 mg PO Q6H PRN 06/18/16 [History Confirmed Last Taken 06/22/16] Lorazepam [Ativan] 0.5 mg PO HS PRN 06/23/16 [History Confirmed 06/23/16 Last Taken Unknown] Ondansetron HCl [Zofran] 4 mg PO Q8H PRN 06/23/16 [History Confirmed 06/23/16 Last Taken 06/22/16] Oxycodone Immediate Release [Oxycodone Immediate Release (OxyIR)] 5 - 10 mg PO Q4H PRN #60 tab 06/24/16 [Rx Last Taken Unknown] Diet at Discharge: As Tolerated, Regular Activity: Limited (NWB LUE), No Driving Call Office For: Worsening Symptoms, Wound is Draining Pus, Fever over 101 F, Fever over 100.5, Wound is Painful, Wound is Red, Weight Gain (see below), Pain Uncontrolled By Meds, Other (See Details) Discontinue use of:: Alcohol, All Illegal Substances, All Types of Tobacco - DC Summary Notes Hospital Course Note:: Discharge summary on patient named BHARATH ROSE admitted to [facility] on 06/23/16 by Haseeb Keith MD. Date of discharge is [05/29]. Afebrile. Hospital course and surgery uneventful. Continue pain management. Patient to remain NWB with LUE. To remain in sling, do not remove. Discharge to home. To follow-up in office in 1 week or earlier as needed. Wound Care Surgical Site: Yes Site Description (if applicable): left arm and elbow Dressing/Site Care (if applicable): Do not remove splint Remove Transdermal Scopalamine patch if present: YES Continue Ice Packs/Ice Machine to Operative Area: Yes (NWB LUE) Activity as Tolerated: No Weight Bearing: None (NWB LUE) Current Dressing: Aquacel, Splint Dressing Care: Keep Wound Clean & Dry, No Tub Baths, Do Not Change Dressing - Consults/Home Health Outpatient Consults: None - Physical Exam Vital Signs: Initial Vitals Temperature 97.8 F 06/23/16 10:50 Pulse Rate 90 06/23/16 10:50 Respiratory Rate 16 06/23/16 10:50 Blood Pressure 150/89 06/23/16 10:50 Pulse Oxygen Saturation 96 06/23/16 10:50 Last Vital Signs Temp 99.3 F 06/24/16 10:44 Pulse 95 06/24/16 10:44 Resp 18 06/24/16 10:44 BP 170/90 06/24/16 10:44 Pulse Ox 95 06/24/16 10:44 Constitutional: No apparent distress, Alert, Well appearing Oriented to: Time, Person, Place - HEENT Head: Normal - Musculoskeletal Extremities: Radial Pulse, Other (splint in place and intact) - Neurologic Memory Impaired: Normal Motor Function: Normal Cranial Nerve: Normal Cerebellar: Normal Mood Description: Normal Thought: Coherent Perception: Normal
[2016-06-24 14:36] VITALS: BP 140/78; PULSE 92; TEMP 98.8
== END 2016-06-24 15:21 | disposition home or self-care (01) ==
LOC: SDC 10:39 → MPS3 18:54 → INTOOBSV 18:54
PROVIDERS: ADMIT Orthopaedic Surgery; ATTEND Orthopaedic Surgery
PROC: 0PSL04Z Reposition Left Ulna with Internal Fixation Device, Open Approach (ICD-10-PCS; 2016-06-23)
PROC: 0PSD04Z Reposition Left Humeral Head with Internal Fixation Device, Open Approach (ICD-10-PCS; principal; 2016-06-23 12:30)
DX: S42.222A 2-part displaced fracture of surgical neck of left humerus, initial encounter for closed fracture (principal); S52.022A Displaced fracture of olecranon process without intraarticular extension of left ulna, initial encounter for closed fracture; J45.909 Unspecified asthma, uncomplicated; I10 Essential (primary) hypertension; Z79.899 Other long term (current) drug therapy; F17.200 Nicotine dependence, unspecified, uncomplicated; W19.XXXA Unspecified fall, initial encounter
CPT/HCPCS: 23615; 24685; G0378; J0171; J0330; J0690; J1100; J1170; J2001; J2250; J2405; J2550; J2710; J3010; J3370; J3490; S0020; 90656; 90732